=== PATIENT | male | born 1990 | race Caucasian/White ===

== ENCOUNTER 2023-12-13 08:07 | Emergency (ER) | payer OTHER, BC, SELFPAY ==
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
[2023-12-13 08:08] VITALS: BP 129/77; PULSE 67; RESP 18; TEMP 36.4; O2SAT 98; BMI 28.6
--- OUTSIDE RECORDS SUMMARY | 2023-12-13 08:32 | XMS_ITS | Continuity of Care Document ---
Author Name Unknown Organization [facility] Adult Address [address] [place] [address]- Care Team Providers Care Studio Data Analyst Name Role Phone Kd DHALIWAL, Anna Primary Care Physician [facility]counter [facility] Date(s): 12/10/21 - 01/09/22 [facility] Adult [address] [place] [phone]- Allergies, Adverse Reactions, Alerts No Known Allergies Immunizations Given and Recorded Vaccine Date Status Refusal Reason influenza virus vaccine, inactivated 08/15/20 Kenneth rded influenza virus vaccine, inactivated 08/17/19 Kenneth rded influenza virus vaccine, inactivated 08/11/18 Kenneth rded influenza virus vaccine, inactivated 08/09/18 Kenneth rded influenza virus vaccine, inactivated 08/16/17 Kenneth rded influenza virus vaccine, inactivated 08/19/16 Kenneth rded influenza virus vaccine, inactivated 08/01/14 Kenneth rded tetanus/diphtheria/pertussis, acel(Tdap) 03/23/19 Given tetanus/diphtheria/pertussis, acel(Tdap) 05/01/15 Recorded Tet/Diphth/Acel, Pertussis (oldterm) 1 06/04/08 Gi mague Meningococcal Poly Vacc (oldterm) 06/01/07 Given tetanus-diphtheria toxoids (Td) 05/16/03 Given Measles/Mumps/Rubella Virus Vaccine 06/12/97 Given Measles/Mumps/Rubella Virus Vaccine 07/25/93 Given Polio Vaccine, Live (oldterm) 2 06/12/97 Given Polio Vaccine, Live (oldterm) 3 12/30/93 Given Polio Vaccine, Live (oldterm) 4 92 Given Polio Vaccine, Live (oldterm) 5 92 Given Diphth/Pertussis,Acel/Tetanus (oldterm) 06/12/97 G iven Diphth/Pertussis,Acel/Tetanus (oldterm) 12/30/93 G iven Diphth/Pertussis,Acel/Tetanus (oldterm) 92 G iven Diphth/Pertussis,Acel/Tetanus (oldterm) 92 G iven Diphth/Pertussis,Acel/Tetanus (oldterm) 92 G iven Haemophilus B Conj Vaccine (oldterm) 07/25/93 Give n Haemophilus B Conj Vaccine (oldterm) 92 Give n Haemophilus B Conj Vaccine (oldterm) 92 Give n Haemophilus B Conj Vaccine (oldterm) 92 Give n Hepatitis B Vaccine (old term) 02/21/93 Given Hepatitis B Vaccine (old term) 92 Given Hepatitis B Vaccine (old term) 92 Given 1Admin Note: VIS 05/12/2006 2Admin Note: POLIO(oral) 3Admin Note: POLIO(oral) 4Admin Note: POLIO(oral) 5Admin Note: POLIO(oral) Medications Multivitamin Daily, 0 Refills, Maintenance, 02/25/21 16:13:00 EDT, Partial fill upon patient request if the prescription is for a schedule II opioid drug. Start Date: 02/25/21 Status: Ordered Vitamin C By Mouth, Daily, 0 Refills, Maintenance, 02/25/21 16:13:00 EDT, Partial fill upon patient request if the prescription is for a schedule II opioid drug. Start Date: 02/25/21 Status: Ordered Problem List Condition Effective Dates Status Health Status Inform ant Seasonal allergic conjunctivitis(Confirmed) Active Seasonal allergic rhinitis(Confirmed) Active Social History Social History Type Response Smoking Status Never smoker entered on: 09/19/15 Sex
--- OUTSIDE RECORDS SUMMARY | 2023-12-13 08:32 | XMS_ITS | Continuity of Care Document ---
Author Name Unknown Organization [facility] Adult Address [address] [place] [address]- Care Team Providers Care Lace Sewer Name Role Phone Kd DHALIWAL, Anna Primary Care Physician Encounter [facility] Date(s): 05/16/20 - 06/15/20 [facility] Adult [address] [place] [phone]- [facility] Allergies, Adverse Reactions, Alerts Substance Reaction Severity Status NKA Active Immunizations Given and Recorded Vaccine Date Status Refusal Reason tetanus/diphtheria/pertussis, acel(Tdap) 03/23/19 Given influenza virus vaccine, inactivated 08/09/18 Kenneth rded Tet/Diphth/Acel, Pertussis (oldterm) 1 06/04/08 Gi mague [...] 4Admin Note: POLIO(oral) 5Admin Note: POLIO(oral) Medications Hand/wrist brace. DX left carpal tunnel syndrome Hand/wrist brace. DX left carpal tunnel syndrome, See Instructions, # 1 each, Refills 0, Tot. Refills 0, Maintenance, Wear as tolerated, 05/16/20 9:35:00 EDT, Supply Start Date: 05/16/20 Status: Ordered Hand/wrist brace. DX right carpal tunnel syndrome Hand/wrist brace. DX right carpal tunnel syndrome, See Instructions, # 1 each, Refills 0, Tot. Refills 0, Maintenance, wear as tolerated, 05/16/20 9:37:00 EDT, Supply Start Date: 05/16/20 Status: Ordered loratadine 10 mg oral tablet 1 tablet = 10 mg, By Mouth, Daily, 0 Refills, Maintenance Start Date: 03/21/13 Status: Ordered Problem List Condition Effective Dates Status Health Status Inform ant Seasonal allergic conjunctivitis(Confirmed) Active Seasonal allergic rhinitis(Confirmed) Active Social History Social History Type Response Smoking Status Never smoker entered on: 09/19/15 Sex
--- OUTSIDE RECORDS SUMMARY | 2023-12-13 08:32 | XMS_ITS | Continuity of Care Document ---
Author Name Unknown Organization [facility] Adult Address [address] [place] [address]- Care Team Providers Care Metropolitan Editor Name Role Phone Kd DHALIWAL, Anna Primary Care Physician Encounter [facility] Date(s): 08/14/21 - 08/21/[address] [facility] Adult [address] [place] [address]- Encounter Diagnosis Shoulder pain(Discharge Diagnosis) - 08/14/21 Attending Physician: Arnaud JEROME, Adriane Contreras Referring Physician: Anna Yi MD Allergies, Adverse Reactions, Alerts Substance Reaction Severity [...] opioid drug. Start Date: 02/25/21 Status: Ordered naproxen 500 mg oral tablet 1 tablet = 500 mg, By Mouth, 2 times a day, for 30 days, # 60 tablet, 0 Refills, Acute 09/13/21 10:49:00 EST, 08/14/21 10:49:00 EDT, Tablet, [facility][id number], Partial fill upon patient request if the prescription is for a schedule II opioid drug., 1... Start Date: 08/14/21 Stop Date: 09/13/21 Status: Ordered Vitamin C By Mouth, Daily, 0 Refills, Maintenance, 02/25/21 16:13:00 EDT, Partial fill upon patient request if the prescription is for a schedule II opioid drug. Start Date: 02/25/21 Status: Ordered Problem List Condition Effective Dates Status Health Status Inform ant Seasonal allergic conjunctivitis(Confirmed) Active Seasonal allergic rhinitis(Confirmed) Active Diagnosis Diagnosis Type Effective Dates Health Status Cl inical Service Informant Shoulder pain Discharge Diagnosis 08/14/21 Vital Signs Most recent to oldest [Reference Range]: 1 Height 186 cm (08/14/21 9:00 AM) Weight 86.3 kg (08/14/21 9:00 AM) Body Mass Index [18.5-24.99] 24.95 (08/14/21 9:00 AM) Weight Obtained Via Patient/family state d (08/14/21 9:00 AM) Social History Social History Type Response Smoking Status Never smoker entered on: 09/19/15 Sex
--- OUTSIDE RECORDS SUMMARY | 2023-12-13 08:32 | XMS_ITS | Continuity of Care Document ---
Author Name Unknown Organization [facility] Adult Address [address] [place] [address]- Care Team Providers Care Territory Service Representative Name Role Phone Kd DHALIWAL, Anna Primary Care Physician [facility] Date(s): 12/10/21 - 01/11/22 [facility] Adult [address] [place] [address]- Attending Physician: Anna Yi MD Allergies, Adverse Reactions, Alerts No Known Allergies [...]
--- OUTSIDE RECORDS SUMMARY | 2023-12-13 08:32 | XMS_ITS | Continuity of Care Document ---
Author Name Unknown Organization [facility] Adult Address [address] [place] [address]- Care Team Providers Care Hvac Sheet Metal Installer Name Role Phone Kd DHALIWAL, Anna Primary Care Physician [facility]counter [facility] Date(s): 10/08/23 - 11/07/23 [facility] Adult [address] [place] [address]- Allergies, Adverse Reactions, Alerts No Known Allergies Immunizations Given and Recorded Vaccine Date Status Refusal Reason influenza virus vaccine, inactivated 07/29/22 Kenneth rded influenza virus vaccine, inactivated 09/06/21 Kenneth rded influenza virus vaccine, inactivated 08/15/20 Kenneth rded influenza virus vaccine, inactivated 08/17/19 Kenneth rded influenza virus vaccine, inactivated 08/11/18 Kenneth rded influenza virus vaccine, inactivated 08/09/18 Kenneth rded influenza virus vaccine, inactivated 08/16/17 Kenneth rded influenza virus vaccine, inactivated 08/19/16 Kenneth rded influenza virus vaccine, inactivated 08/01/14 Kenneth rded SARS-CoV-2 (COVID-19) mRNA-1273 vaccine 10/03/21 R ecorded SARS-CoV-2 (COVID-19) mRNA-1273 vaccine 02/13/21 R ecorded tetanus/diphtheria/pertussis, acel(Tdap) 03/23/19 Given tetanus/diphtheria/pertussis, acel(Tdap) 05/01/15 [...] Date: 02/25/21 Status: Ordered Problem List Condition Confirmation Course Effective Dates Status H ealth Status Informant Seasonal allergic conjunctivitis Confirmed Active Seasonal allergic rhinitis Confirmed Active Social History Social History Type Response Smoking Status Never smoker entered on: 09/19/15 Sex Patient Care team information Care Team Personnel Name: Kd DHALIWAL, Anna Position: [facility] Physician - Primary Care Member Role: PCP Address: Address: [address] [facility] 3rd [place] [address]- Care Team Related Persons Name: JULIÁN TAI Name: ALEX REBOLLEDO Address: home [address] [place] [address] Name: JIM CARRASCO Address: home [address] [place] [address]
--- OUTSIDE RECORDS SUMMARY | 2023-12-13 08:32 | XMS_ITS | Continuity of Care Document ---
Author Name Unknown Organization [facility] Address [address] [place] [address]- Care Team Providers Care Va Underwriter Name Role Phone Kd DHALIWAL, Anna Primary Care Physician [facility]counter [facility] Date(s): 11/23/22 - 12/23/22 [facility] [address] [place] [address]- Allergies, Adverse Reactions, Alerts No Known Allergies [...] Care team information Care Team Personnel Name: Anna Yi MD Position: [facility] Primary Care Physician Member Role: PCP Address: Address: [address] [facility] 3rd [place] [address]- Care Team Related Persons Name: JULIÁN TAI Name: ALEX REBOLLEDO Address: home [address] [place] [address] Name: JIM CARRASCO Address: home [address] [place] [address]
--- OUTSIDE RECORDS SUMMARY | 2023-12-13 08:32 | XMS_ITS | Continuity of Care Document ---
Author Name Unknown Organization [facility] Adult Address [address] [place] [address]- Care Team Providers Care Supervisor Sewing Department Name Role Phone Kd DHALIWAL, Anna Primary Care Physician [place] [facility] [place] 05/23/20 - 06/22/20 [facility] Adult [address] [place] [address]- [facility] Allergies, Adverse Reactions, Alerts Substance Reaction Severity [...]
--- OUTSIDE RECORDS SUMMARY | 2023-12-13 08:32 | XMS_ITS | Continuity of Care Document ---
Author Name Unknown Organization [facility] Adult Address [address] [place] [address]- Care Team Providers Care Commissary Agent Name Role Phone Kd DHALIWAL, Anna Primary Care Physician Encounter [facility] Date(s): 02/25/21 - 03/04/21 [facility] Adult [address] [place] [address]- Encounter Diagnosis Left foot pain(Discharge Diagnosis) - 02/25/21 Left lateral ankle pain(Discharge Diagnosis) - 02/25/21 Attending Physician: Anna Yi MD Allergies, Adverse [...] Dates Health Status Cl inical Service Informant Left foot pain Discharge Diagnosis 02/25/21 Left lateral ankle pain Discharge Diagnosis 02/25/21 Vital Signs Most recent to oldest [Reference Range]: 1 Height 186 cm (02/25/21 4:09 PM) Social History Social History Type Response Smoking Status Never smoker entered on: 09/19/15 Sex
--- OUTSIDE RECORDS SUMMARY | 2023-12-13 08:32 | XMS_ITS | Continuity of Care Document ---
Author Name Unknown Organization [facility] Adult Address [address] [place] [address]- Care Team Providers Care Science And Operations Officer Name Role Phone Kd DHALIWAL, Anna Primary Care Physician En[place] [facility] Date(s): 08/21/20 - 12/19/20 [facility] Adult [address] [place] [address]- Attending Physician: Anna Yi MD Allergies, Adverse [...]
--- OUTSIDE RECORDS SUMMARY | 2023-12-13 08:32 | XMS_ITS | Continuity of Care Document ---
Author Name Unknown Organization [facility] Adult Address [address] [place] [address]- Care Team Providers Care Door To Door Fundraising Collector Name Role Phone Kd DHALIWAL, [place] Primary Care Physician [facility]counter [facility] Date(s): 04/30/22 - 05/30/22 [facility] Adult [address] [place] [address]- Allergies, Adverse Reactions, Alerts No Known Allergies [...]
--- OUTSIDE RECORDS SUMMARY | 2023-12-13 08:32 | XMS_ITS | Continuity of Care Document ---
Author Name Unknown Organization [facility] ter Address [address] [place] [address]- Care Team Providers Care Water Quality Analyst Name Role Phone Anna Yi MD Primary Care Physician Encounter [facility] Date(s): 11/07/19 - 11/07/[address] [address] [facility] Attending Physician: Anna Yi MD Allergies, Adverse [...] 4Admin Note: POLIO(oral) 5Admin Note: POLIO(oral) Medications loratadine 10 mg oral tablet 1 tablet = 10 mg, By Mouth, Daily, 0 Refills, Maintenance Start Date: 03/21/13 Status: Ordered Problem List Condition Effective Dates Status Health Status Inform ant Seasonal allergic conjunctivitis(Confirmed) Active Seasonal allergic rhinitis(Confirmed) Active Social History Social History Type Response Smoking Status Never smoker entered on: 09/19/15 Sex
--- OUTSIDE RECORDS SUMMARY | 2023-12-13 08:32 | XMS_ITS | Continuity of Care Document ---
Author Name Unknown Organization [facility] Adult Address [address] [place] [address]- Care Team Providers Care Manager Cafe Name Role Phone Kd DHALIWAL, [place] Primary Care Physician Encounter [facility] Date(s): 05/16/20 - 05/23/20 [facility] Adult [address] [place] [address]- [facility] Encounter Diagnosis Hand pain(Discharge Diagnosis) - 05/16/20 Attending Physician: Not on Staff, Attending MD Allergies, Adverse Reactions, Alerts Substance Reaction [...] Diagnosis Diagnosis Type Effective Dates Health Status Clini travon Service Informant Hand pain Discharge Diagnosis 05/16/20 Vital Signs Most recent to oldest [Reference Range]: 1 Height 186 cm (05/16/20 8:58 AM) Weight 91.3 kg (05/16/20 8:58 AM) Oxygen Saturation [94-100 %] 97 % (05/16/20 8:58 AM) Pulse Rate [55-90 bpm] 71 bpm (05/16/20 8:58 AM) Body Mass Index [18.5-24.99] 26.39 *H* (05/16/20 8:58 AM) Blood Pressure [90-138/55-84 mm Hg] 102/ 60mm Hg (05/16/20 8:58 AM) Mode of Delivery (Oxygen) Room air (05/16/20 8:58 AM) Blood pressure sites Arm, left (05/16/20 8:58 AM) Weight Obtained Via Standing scale (05/16/20 8:58 AM) Social History Social History Type Response Smoking Status Never smoker entered on: 09/19/15 Sex
--- OUTSIDE RECORDS SUMMARY | 2023-12-13 08:32 | XMS_ITS | Continuity of Care Document ---
Author Name Unknown Organization [facility] Adult Address [address] [place] [address]- Care Team Providers Care Forest Products Gatherer Name Role Phone Kd DHALIWAL, Anna Primary Care Physician Encounter [facility] Date(s): 12/12/21 - 01/11/22 [facility] Adult [address] [place] [address]- Attending Physician: Nba Merino Admitting Physician: Nba Merino Referring Physician: AdmtrNba Allergies, Adverse Reactions, Alerts No Known Allergies [...]
--- OUTSIDE RECORDS SUMMARY | 2023-12-13 08:32 | XMS_ITS | Continuity of Care Document ---
Author Name Unknown Organization [facility] Adult Address [address] [place] [address]- Care Team Providers Care Pepper Cutter Name Role Phone Anna Yi MD Primary Care Physician Encounter [facility] Date(s): 02/05/21 - 03/07/21 [facility] Adult [address] [place] [address]- Attending Physician: Anna Yi MD Allergies, Adverse [...]
--- OUTSIDE RECORDS SUMMARY | 2023-12-13 08:33 | XMS_ITS | Continuity of Care Document ---
Author Name Unknown Organization [facility] Adult Address [address] [place] [address]- Care Team Providers Care Surgical Instrument Maker Name Role Phone Kd DHALIWAL, Anna Primary Care Physician [place] [facility] 05/15/20 - 06/14/20 [facility] Adult [address] [place] [address]- [facility] Allergies, Adverse Reactions, Alerts Substance Reaction [...]
--- OUTSIDE RECORDS SUMMARY | 2023-12-13 08:33 | XMS_ITS | Continuity of Care Document ---
Author Name Unknown Organization [facility] Adult Address [address] [place] [address]- Care Team Providers Care Mine Equipment Design Engineer Name Role Phone Kd DHALIWAL, Anna Primary Care Physician [place] [facility] 07/08/23 - 08/07/23 [facility] Adult [address] [place] [address]- Attending Physician: Nba Merino Admitting Physician: Nba [...] 06/04/08 Gi mague Meningococcal Poly Vacc (oldterm) 8/1/07 Given tetanus-diphtheria toxoids (Td) 05/16/03 Given Measles/Mumps/Rubella [...] Status Never smoker entered on: 09/19/15 Sex EKG study * Event Display: EKG Authored Date: Radiology * Event Display: X-Ray Ankle/Foot, Non- BH Authored Date: Patient Care team information Care Team Personnel Name: Anna Yi MD Position: S Physician - Primary Care Member Role: PCP Address: Address: [address] [place] [address] [address] [place] [address]- Care Team Related Persons Name: JULIÁN TAI Name: ALEX REBOLLEDO Address: home [address] [place] [address] Name: JIM CARRASCO Address: home [address] [place] [address]
--- OUTSIDE RECORDS SUMMARY | 2023-12-13 08:33 | XMS_ITS | Continuity of Care Document ---
Author Name Unknown Organization [facility] Adult Address [address] [place] [address]- Care Team Providers Care Mechanical Engineering Intern Name Role Phone Kd DHALIWAL, Anna Primary Care Physician Encounter [facility] Date(s): 12/02/22 - 12/09/22 [facility] Adult [address] [place] [address]- Attending Physician: Anna Yi MD Allergies, Adverse [...] 4Admin Note: POLIO(oral) 5Admin Note: POLIO(oral) Medications betamethasone-clotrimazole 0.05%-1% topical cream 1 application, Topically, 2 times a day, for 14 days, Not to be used longer than 2 weeks, # 90 Gm, 0 Refills, Acute 12/18/22 9:20:00 EST, 12/04/22 9:20:00 EST, Cream, [id number], Partial fillupon patient request if the prescription is for a s... Start Date: 12/04/22 Stop Date: 12/18/22 Status: Ordered Multivitamin Daily, 0 Refills, Maintenance, 02/25/21 16:13:00 [...] Confirmed Active Seasonal allergic rhinitis Confirmed Active Vital Signs Most recent to oldest [Reference Range]: 1 Height 186 cm (12/02/22 4:17 PM) Social History Social History Type Response Smoking Status Never smoker entered on: 09/19/15 Sex Patient Care team information Care Team Personnel Name: Anna Yi MD Position: [facility] Primary Care Physician Member Role: PCP Address: Address: [address] [place] [address] 3rd [place] [address]- Care Team Related Persons Name: JULIÁN TAI Name: ALEX REBOLLEDO Address: home [address] [place] [address] Name: JIM CARRASCO Address: home [address] [place] [address]
--- OUTSIDE RECORDS SUMMARY | 2023-12-13 08:33 | XMS_ITS | Continuity of Care Document ---
Author Name Unknown Organization [facility] Adult Address [address] [place] [address]- Care Team Providers Care News Librarian Name Role Phone Kd DHALIWAL, Anna Primary Care Physician Encounter [facility] Date(s): 11/06/19 - 11/16/19 [facility] Adult [address] [place] [address]- [facility] Attending Physician: Nba Merino Admitting Physician: Nba Merino Referring Physician: AdmtrNba Allergies, Adverse Reactions, Alerts Substance Reaction Severity [...]
--- OUTSIDE RECORDS SUMMARY | 2023-12-13 08:33 | XMS_ITS | Continuity of Care Document ---
Author Name Unknown Organization [facility] Adult Address [address] [place] [address]- Care Team Providers Care Plate Conditioner Name Role Phone Kd DHALIWAL, Anna Primary Care Physician Encounter [facility] [place] Date(s): 08/14/21 - 09/13/21 [facility] Adult [address] [place] [address]- Attending Physician: Nba Merino Admitting Physician: Nba [...]
--- OUTSIDE RECORDS SUMMARY | 2023-12-13 08:33 | XMS_ITS | Continuity of Care Document ---
Author Name Unknown Organization [facility] Adult Address [address] [place] [address]- Care Team Providers Care Corporate General Manager Name Role Phone Kd DHALIWAL, Anna Primary Care Physician Encounter [facility] Date(s): 02/25/21 - 03/27/21 [facility] Adult [address] [place] [address]- Attending Physician: Nba Merino Admitting Physician: AdmNba burroughs Referring Physician: AdmtrNba Allergies, Adverse Reactions, Alerts [...]
--- OUTSIDE RECORDS SUMMARY | 2023-12-13 08:33 | XMS_ITS | Continuity of Care Document ---
Author Name Unknown Organization [facility] Adult Address [address] [place] [address]- Care Team Providers Care Gathering Worker Name Role Phone Kd DHALIWAL, Anna Primary Care Physician [facility]counter [facility] Date(s): 04/09/23 - 08/07/23 [facility] Adult [address] [place] [address]- Attending Physician: Altagracia JEROME, Louie Diamond Allergies, Adverse Reactions, Alerts No Known Allergies [...] Response Smoking Status Never smoker entered on: 11/19/15 Sex Patient Care team information Care Team Personnel Name: Kd DHALIWAL, Anna Position: [facility] Physician - Primary Care Member Role: PCP Address: Address: [address] [facility] 3rd [place] [address]- Care Team Related Persons Name: JULIÁN TAI Name: ALEX REBOLLEDO Address: home [address] [place] [address] Name: JIM CARRASCO Address: home [address] [place] [address]
--- OUTSIDE RECORDS SUMMARY | 2023-12-13 08:33 | XMS_ITS | Continuity of Care Document ---
Author Name Unknown Organization [facility] ter Address [address] [place] [address]- Care Team Providers Care Online Marketing Strategist Name Role Phone Kd DHALIWAL, Anna Primary Care Physician Encounter [facility] [place] Date(s): 05/29/20 - 07/08/[address] [address]- [facility] Attending Physician: Anna Yi MD Admitting Physician: Anna Yi MD Referring Physician: Anna Yi MD Allergies, Adverse [...]
--- OUTSIDE RECORDS SUMMARY | 2023-12-13 08:33 | XMS_ITS | Continuity of Care Document ---
Author Name Unknown Organization [facility] Adult Address [address] [place] [address]- Care Team Providers Care Line Assigner Name Role Phone Kd DHALIWAL, Anna Primary Care Physician Encounter [facility] [place] Date(s): 11/19/20 - 12/19/20 [facility] Adult [address] [place] [address]- Attending Physician: Nba Merino Admitting Physician: AdmNba [...]
--- OUTSIDE RECORDS SUMMARY | 2023-12-13 08:33 | XMS_ITS | Continuity of Care Document ---
Author Name Unknown Organization [facility] Address [address] [place] [address]- Care Team Providers Care Certified Welding Inspector Name Role Phone Kd DHALIWAL, Anna Primary Care Physician Encounter [facility] Date(s): 12/03/22 - 01/02/23 [facility] [address] [place] [id number]- Allergies, Adverse Reactions, Alerts No Known Allergies [...] Team Personnel Name: Kd DHALIWAL, Anna Position: [facility] Primary Care Physician Member Role: PCP Address: Address: [address] [place] [address]- Care Team Related Persons Name: JULIÁN TAI Name: ALEX REBOLLEDO Address: home [address] [place] [address] Name: JIM CARRASCO Address: home [address] [place] [address]
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
[2023-12-13] MEDS: Acetaminophen 325 MG TABLET 975 MG PO (09:17)
[2023-12-13] MEDS: diazePAM 2 MG TABLET PO (11:44)
== END 2023-12-13 13:15 | disposition home or self-care (01) ==
PROVIDERS: Emergency Provider Emergency Medicine; PCP Internal Medicine
DX: S13.4XXA Sprain of ligaments of cervical spine, initial encounter (principal); S39.012A Strain of muscle, fascia and tendon of lower back, initial encounter; M54.2 Cervicalgia; M25.562 Pain in left knee; M54.6 Pain in thoracic spine; R51.9 Headache, unspecified; V43.52XA Car driver injured in collision with other type car in traffic accident, initial encounter; Y93.9 Activity, unspecified; Y92.410 Unspecified street and highway as the place of occurrence of the external cause; Y99.8 Other external cause status
CPT/HCPCS: 70450; 72072; 72100; 72125; 73562; 99283; 99284